=== PATIENT | female | born 1945 | race Caucasian/White ===

== ENCOUNTER → 2017-09-11 | Day surgery (SDC) | payer OTHER, MEDICARE ==
[~2017-09-11] VITALS: Ht 160 cm; Wt 70.3 kg
[~2017-09-11] MED LIST: CITALOPRAM HBR10 MG PO; CO-Q-10 100 MG-1 SGL PO; LEVOTHYROXINE100 MC1 PO; MAG GLYCINATE100 MG PO; PRESERVISION A1 EAC1 PO; PRESERVISION AR1 SGL PO; PROTONIX 40MG T40 MG PO; THERA TEARS15 ML OU; VITAMIN B-121000 MC3 PO; VITAMIN B-125000 MCG PO; VITAMIN D1000 UNIT PO; VITAMIN D31000 UNI1 PO
--- NOTE | 2017-09-11 08:29 | Operative Report ---
Operative/Inv Procedure Report Surgery Date: 09/11/17 Name of Procedure: Cataract extraction lens implantation left eye Pre-Operative Diagnosis: Age-related cataract left eye 20/30 vision 20/70 glare vision Post-Operative Diagnosis: Same Estimated Blood Loss: none Surgeon/Railroad Baggage Porter: Cesario MAXWELL,Juan David Shine Anesthesia: local monitored anesthesi Complications: None Operative/Procedure Note Note: The patient was brought to the operating room standard monitoring equipment was attached the patient was prepped and draped in the usual fashion for intraocular surgery. A lid speculum was placed to retract the lids. The case was begun by making a temporal incision with a 2.4 mm keratome. The eye was stabilized with a Braga ring during this incision. 1 mL of non-preserved lidocaine was introduced into the anterior chamber to provide anesthesia. The anterior chamber was then filled and deepened with viscoelastic. A curvilinear capsulorrhexis was achieved using a 30-gauge needle and is a cystotome and capsulorrhexis was finished using a Utrata forceps. A second or paracentesis incision was made temporally with a 1 mm MVR blade. The lens was then hydrodissected with balanced salt solution and found to be rotatable. The lens was emulsified using phacoemulsification and a modified four-quadrant cracking technique. The residual cortical material was removed using automated irrigation and aspiration and as much of the anterior capsular rim was cleaned as well as possible. The posterior capsule was cleaned first with the automated machine on a low setting and then manually with a Ronaldo squeegee. The capsular bag was deepened with viscoelastic. The lens a Technis 1 23.0 Diopter placed into the bag under direct visualization and rotated so that the haptics were at 12 and 6:00. Viscoelastic was then removed from the eye by flushing it out and then by automated irrigation and aspiration. The eye was pressurized to a normal tone. 1/10 of a cc of cefuroxime solution was introduced into the anterior chamber to provide antibiotic prophylaxis. The wounds were sealed by hydrating the stroma adjacent to them and the eye was left at a proper tone after the wounds were checked and found not to be leaking. The lid speculum was removed from the orbit. Antibiotic and steroid drops were placed on the eye and then the eye was shielded. Monitoring equipment was removed from the patient and the patient was removed from the operative suite to the holding area. The patient tolerated the procedure well and will be seen in the office tomorrow.
== END ==
LOC: STS 00:43
DX: H25.9 Unspecified age-related cataract (principal); E03.9 Hypothyroidism, unspecified; M19.90 Unspecified osteoarthritis, unspecified site
CPT/HCPCS: J2250; V2632

== ENCOUNTER 2018-03-18 11:33 | Observation (INO) | payer OTHER, MEDICARE ==
[~2018-03-18] VITALS: Ht 160 cm; Wt 70.3 kg
[2018-03-18 12:10] LABS: ABSOLUTE BASOPHIL COUNT 0 /CUMM (0.0-0.2); ABSOLUTE EOSINOPHIL COUNT 0 /CUMM (0.0-0.7); ABSOLUTE GRANULOCYTE CT 12.6 /CUMM (1.4-6.5); ABSOLUTE LYMPH COUNT 1.9 /CUMM (1.2-3.4); ABSOLUTE MONOCYTE COUNT 1.3 /CUMM (0.10-0.60); BASOPHIL % 0.2 % (0.0-2.0); EOSINOPHIL % 0.1 % (0-5); GRANULOCYTE % 79.5 % (42.2-75.2); HEMATOCRIT 42.9 % (37-47); MEAN CORPUSCULAR HGB 30.5 PG (27.0-31.0); MEAN CORPUSCULAR HGB CONC 33.4 G/DL (33.0-37.0); MEAN CORPUSCULAR VOLUME 91.1 FL (81.0-99.0); MEAN PLATELET VOLUME 7.6 FL (7.4-10.4); PLATELET COUNT 267 /CUMM (130-400); RBC DISTRIBUTION WIDTH 14.1 % (11.5-14.5); RED BLOOD CELL CT 4.71 /CUMM (4.20-5.40); WHITE BLOOD CELL COUNT 15.9 /CUMM (4.8-10.8)
[2018-03-18 12:23] LABS: PT 12.9 SEC (9.4-12.5); PTT 51 SEC (25-37)
[2018-03-18] MEDS ORDERED: LEVOTHYROXINE50 MCG PO (14:40)
--- NOTE | 2018-03-18 15:19 | ED GI/GU/ABDOMINAL COMPLAINT ---
History of Present Illness General Chief Complaint: Abdominal Pain/Flank Pain Stated Complaint: SENT BY MD TO R/O APPENDICITIS Source: patient Exam Limitations: no limitations Vital Signs & Intake/Output Vital Signs & Intake/Output Vital Signs Date Time Temp Pulse Resp B/P B/P Pulse O2 O2 Flow FiO2 Mean Ox Delivery Rate 03/18 1858 98.3 75 17 102/56 97 Room Air 03/18 1625 76 18 103/59 98 Room Air 03/18 1146 99.1 87 20 123/77 97 Room Air Allergies Coded Allergies: Penicillins (SUBSTANTIAL RASH A YOUNG ADULT 09/08/17) Triage Note: PT SENT IN BY PCP, PT STATES SHE WAS TOLD THAT SHE MIGHT HAVE APPENDICITIS AND HER WBC COUNT HIGH, PER PT "I THINK SHE SAID [id number]" PT STATES THAT SHE HAS HAD ABD PAIN X2DAYS AND PT STATES THAT SHE HAS NOT HAD ANYTHING TO EAT IN 2 DAYS DUE TO NAUSEA. PT STATES THAT SATURDAY MORNING SHE PASSED OUT ON TOILET. Triage Nurses Notes Reviewed? yes ? n Is pt currently ? No Onset: Gradual Duration: day(s): Timing: recent history Quality/Severity: moderate Location: periumbilical HPI: 73yo female with hx of thyroid disease presents to ED complaining of abdominal pain beginning 03/16. Patient states that her abdominal pain began as periumbilical pain and has gradually worsened since onset. Patient went to see her primary care physician this morning and experienced pain when PCP palpated her right lower quadrant. Given this finding patient was sent here for evaluation of appendicitis. Patient reports that last bowel movement was in the early hours of Saturday morning at which time she "passed out". Patient reports associated anorexia and nausea. Patient reports fever >100F recorded at home. Patient denies sick contacts, diarrhea, vomiting or urinary symptoms. (Chica KAM,Alejandrina Fields) Reconcile Medications Citalopram Hydrobromide (Citalopram HBr) 10 MG TABLET 1 TAB PO EOD MENTAL HEALTH (Reported) Levothyroxine Sodium 100 MCG TABLET 1 TAB PO Q48 THYROID (Reported) Levothyroxine Sodium 50 MCG TABLET 1 TAB PO Q48 THYROID (Reported) Oxycodone HCl/Acetaminophen (Percocet 5-325 MG Tablet) 5 MG-325 MG TABLET 1 TAB PO Q4P PRN PAIN (Celia MAXWELL,Akhil Ascencio) Past History Travel History Traveled to [place] past 21 day No Medical History Any Pertinent Medical History? see below for history Gastrointestinal: GERD Endocrine: hypothyroidism Surgical History Surgical History: Psychosocial History What is your primary language Yoruba Tobacco Use: Never used Family History Hx Contributory? No (Alejandrina Chavarria) Review of Systems Review of Systems Constitutional: Reports: see HPI. EENTM: Reports: no symptoms. Respiratory: Reports: no symptoms. Cardiovascular: Reports: no symptoms. GI: Reports: see HPI. Genitourinary: Reports: no symptoms. Musculoskeletal: Reports: no symptoms. Skin: Reports: no symptoms. Neurological/Psychological: Reports: no symptoms. Hematologic/Endocrine: Reports: no symptoms. Immunologic/Allergic: Reports: no symptoms. All Other Systems: Reviewed and Negative (Alejandrina Chavarria) Physical Exam Physical Exam General Appearance: well developed/nourished, no apparent distress, alert, awake Head: atraumatic, normal appearance Eyes: Bilateral: normal appearance. Ears, Nose, Throat, Mouth: hearing grossly normal Neck: normal inspection, supple, full range of motion Respiratory: normal breath sounds, no respiratory distress, lungs clear Cardiovascular: regular rate/rhythm Gastrointestinal: normal bowel sounds, soft, no organomegaly, RLQ and LLQ tenderness with gaurding, no rebound tenderness, -Rosving's sign Back: normal inspection, normal range of motion Extremities: normal range of motion Neurologic/Psych: awake, alert, oriented x 3 Skin: intact, normal color, warm/dry Core Measures ACS in differential dx? No Sepsis Present: No Sepsis Focused Exam Completed? No (Alejandrina Chavarria) Progress Differential Diagnosis: appendicitis, bowel obstruction, colon cancer, cholecystitis, diverticulitis, gastritis, hernia, ischemic bowel, SBO, UTI/pyelo Plan of Care: Orders Procedure Date/time Status OXYGEN 03/19 UNK Complete OXYGEN DAILY CHARGE 03/[address] scan shows appendicitis. Patient has leukocytosis of 15.9. Her EKG is stable. Patient started on IV antibiotics, Flagyl and ceftriaxone given penicillin allergy. Discussed findings with Dr. Miller, plan for appendectomy tonight with overnight observation. The patient was seen and evaluated by Dr. Yang who agrees with this plan. Diagnostic Imaging: Viewed by Me: CT Scan. Discussed w/RAD: CT Scan. Radiology Impression: PATIENT: WON VARMA PRESENT AGE : 73 PATIENT ACCOUNT NO: [id number] : 44 LOCATION: [facility] ORDERING PHYSICIAN: Alejandrina KAM SERVICE DATE: 03/18/18 EXAM TYPE: CAT - CT ABD & PELVIS W/O IV CONTRAS EXAMINATION: CT ABDOMEN AND PELVIS WITHOUT CONTRAST CLINICAL INFORMATION: Right lower quadrant pain. COMPARISON: None TECHNIQUE: Multidetector volumetric imaging was performed from the superior aspect of the liver through the pubic symphysis. Sagittal and coronal reformatted images were obtained on the technologist's workstation. DLP: 322.73 mGy-cm FINDINGS: LUNG BASES: The visualized lung bases are unremarkable. There is a small Bochdalek herniation of mesenteric fat at the posterior right lung base. LIVER, GALLBLADDER, AND BILIARY TREE: The liver is normal in size, shape, and attenuation. No focal hepatic lesion or biliary ductal dilatation is present. The gallbladder is unremarkable with no evidence of radiopaque gallstones, gallbladder wall thickening, or obvious pericholecystic inflammatory changes. PANCREAS: Unremarkable. SPLEEN: Unremarkable. ADRENAL GLANDS: Unremarkable. KIDNEYS AND URETERS: The kidneys are normal in size, shape, and attenuation. No hydronephrosis, hydroureter, or calculi seen. No perinephric stranding. BLADDER: Unremarkable. GASTROINTESTINAL TRACT: The appendix is edematous measuring 1 cm in diameter. There is edema in the surrounding mesentery. This is consistent with an appendicitis. There is no abscess or evidence of perforation. Moderate amount of scattered stool in the colon. The small bowel loops are normal. ABDOMINAL WALL: No significant hernia is appreciated. LYMPH NODES: Normal. VASCULAR: There is scattered vascular calcifications of the distal aorta without aneurysm. PELVIC VISCERA: The uterus is anteverted. There are numerous coarse calcifications within the uterus. There is no adnexal abnormality. There is no fluid in the cul-de-sac. OSSEOUS STRUCTURES: Degenerative spondylosis spine with multilevel disc height narrowing and plate spurring and facet joint arthrosis. IMPRESSION: Appendicitis. DICTATED BY: Alden Lovell MD DATE/TIME DICTATED:03/18/181609 PRISM MEASURER:JEFFERY DATE/TIME TRANSCRIBED:03/18/181609 CONFIDENTIAL, DO NOT COPY WITHOUT APPROPRIATE AUTHORIZATION. <Electronically signed in Other Vendor System> SIGNED BY: Alden Lovell MD 03/18/18 8658 Initial ED EKG: sinus rhythm @85bpm (Alejandrina Chavarria) Departure Departure Disposition: STILL A PATIENT Condition: Stable Referrals: Monserrat MAXWELL,[place] (PCP/Family) Departure Forms: Customer Survey General Discharge Information OR/GI Note Spoke With: Paul MAXWELL,Moise Junior ED Treatment Decision: WON VARMA requires urgent operative management or an emergent procedure that cannot be performed in the Emergency Room setting. Appendectomy Transport To: Surgical [facility] (Alejandrina Chavarria) Departure Clinical Impression Primary Impression: Appendicitis Qualifiers: Appendicitis type: acute appendicitis Prescriptions: Current Visit Scripts Oxycodone HCl/Acetaminophen (Percocet 5-325 MG Tablet) 1 TAB PO Q4P PRN PAIN #10 TAB PA/DECKHAND OYSTER DREDGE Co-Sign Statement Statement: ED Attending supervision documentation- [x] I saw and evaluated the patient. I have also reviewed all the pertinent lab results and diagnostic results. I agree with the findings and the plan of care as documented in the PA's/DECKHAND OYSTER DREDGE's documentation. [] I have reviewed the ED Record and agree with the PA's/DECKHAND OYSTER DREDGE's documentation. [] Additions or exceptions (if any) to the PAs/DECKHAND OYSTER DREDGE's note and plan are summarized below: [] (Celia MAXWELL,Akhil Ascencio)
--- NOTE | 2018-03-18 16:21 | CT SCAN REPORT ---
EXAMINATION: CT ABDOMEN AND PELVIS WITHOUT CONTRAST CLINICAL INFORMATION: Right lower quadrant pain. COMPARISON: None TECHNIQUE: Multidetector volumetric imaging was performed from the superior aspect of the liver through the pubic symphysis. Sagittal and coronal reformatted images were obtained on the technologist's workstation. DLP: 322.73 mGy-cm FINDINGS: LUNG BASES: The visualized lung bases are unremarkable. There is a small Bochdalek herniation of mesenteric fat at the posterior right lung base. LIVER, GALLBLADDER, AND BILIARY TREE: The liver is normal in size, shape, and attenuation. No focal hepatic lesion or biliary ductal dilatation is present. The gallbladder is unremarkable with no evidence of radiopaque gallstones, gallbladder wall thickening, or obvious pericholecystic inflammatory changes. PANCREAS: Unremarkable. SPLEEN: Unremarkable. ADRENAL GLANDS: Unremarkable. KIDNEYS AND URETERS: The kidneys are normal in size, shape, and attenuation. No hydronephrosis, hydroureter, or calculi seen. No perinephric stranding. BLADDER: Unremarkable. GASTROINTESTINAL TRACT: The appendix is edematous measuring 1 cm in diameter. There is edema in the surrounding mesentery. This is consistent with an appendicitis. There is no abscess or evidence of perforation. Moderate amount of scattered stool in the colon. The small bowel loops are normal. ABDOMINAL WALL: No significant hernia is appreciated. LYMPH NODES: Normal. VASCULAR: There is scattered vascular calcifications of the distal aorta without aneurysm. PELVIC VISCERA: The uterus is anteverted. There are numerous coarse calcifications within the uterus. There is no adnexal abnormality. There is no fluid in the cul-de-sac. OSSEOUS STRUCTURES: Degenerative spondylosis spine with multilevel disc height narrowing and plate spurring and facet joint arthrosis. IMPRESSION: Appendicitis.
--- NOTE | 2018-03-18 17:47 | Admission Core Measures ---
Acute Coronary Syndrome (CM) ACS Core Measures Acute Coronary Syndrome Diagnosis No Congestive Heart Failure (NEW) CHF Core Measures Congestive Heart Failure Diagnosis No Cerebrovascular Accident CVA Core Measures CVA/TIA Diagnosis No Venous Thromboembolism VTE Core Dwayne (View Protocol) VTE Risk Factors Age>40 No Mechanical VTE Prophylaxis d/t N/A MechProphylax Ordered No VTE Pharm Prophylaxis d/t NA PharmProphylax ordered Problem List As ranked by this Provider includes Assessment & Plan 1. Acute appendicitis HOME MEDS Home Med List Citalopram Hydrobromide (Citalopram HBr) 10 MG TABLET 1 TAB PO EOD MENTAL HEALTH (Reported) Levothyroxine Sodium 100 MCG TABLET 1 TAB PO Q48 THYROID (Reported) Levothyroxine Sodium 50 MCG TABLET 1 TAB PO Q48 THYROID (Reported)
--- NOTE | 2018-03-18 17:52 | History & Physical Pre-Op ---
Bienvenido Cedillo 03/18/18 7477: General Information and HPI MD Statement: I have seen and personally examined WON CASTANEDA and documented this H&P. The patient is a 73 year old F who presented with a patient stated chief complaint of right lower quadrant abdominal pain []. Source of Information: patient, family Exam Limitations: no limitations History of Present Illness: Ms. Castaneda 73-year-old female with a past medical history of hypothyroidism presents with 1 day history of sudden onset right lower quadrant abdominal pain without nausea or vomiting. She denies any change of bladder or bowel. She denies fever or chills at home she does however complains of anorexia and unable to get comfortable secondary to lower quadrant abdominal pain. CAT scan taken emergency room today demonstrates acute appendicitis. She has no other complaints at this time. Allergies/Medications Allergies: Coded Allergies: Penicillins (SUBSTANTIAL RASH A YOUNG ADULT 09/08/17) Past History Medical History Gastrointestinal: GERD Endocrine: hypothyroidism Surgical History Pertinent Surgical History: Exam & Diagnostic Data Last 24 Hrs of Vital Signs/I&O Vital Signs Date Time Temp Pulse Resp B/P B/P Pulse O2 O2 Flow FiO2 Mean Ox Delivery Rate 03/18 1625 76 18 103/59 98 Room Air 03/18 1146 99.1 87 20 123/77 97 Room Air Intake & Output 03/18 1600 03/18 0800 03/18 0000 Intake Total 0 Output Total Balance 0 Intake, Oral 0 Patient 155 lb Weight Physical Exam General Appearance Alert, Oriented X3, Cooperative Skin No Significant Lesion HEENT PERRLA Cardiovascular Regular Rate, Normal S1, Normal S2 Lungs Clear to Auscultation, Normal Air Movement Abdomen rlq tenderness to palp at mcburney's point, negative rovsing's, no peritonitis, +bs Neurological Strength at 5/5 X4 Ext Extremities No Edema, Normal Pulses Last 24 Hrs of Labs/David: Laboratory Tests 03/18/18 1154: Anion Gap 11, Estimated GFR > 60, BUN/Creatinine Ratio 15.0, Glucose 120 H, Lactic Acid 1.3, Calcium 9.9, Total Bilirubin 1.9 H, AST 30, ALT 21, Alkaline Phosphatase 70, Troponin I < 0.01, Total Protein 7.9, Albumin 4.4, Globulin 3.5, Albumin/Globulin Ratio 1.3, PT 12.9 H, INR 1.18, APTT 51 H, CBC w Diff NO MAN DIFF REQ, RBC 4.71, MCV 91.1, MCH 30.5, MCHC 33.4, RDW 14.1, MPV 7.6, Gran % 79.5 H, Lymphocytes % 11.8 L, Monocytes % 8.4, Eosinophils % 0.1, Basophils % 0.2, Absolute Granulocytes 12.6 H, Absolute Lymphocytes 1.9, Absolute Monocytes 1.3 H, Absolute Eosinophils 0, Absolute Basophils 0 Microbiology 03/18 1734 BLOOD: Blood Culture - RECD 03/18 171 BLOOD: Blood Culture - RECD Diagnostic Data Other Results SERVICE DATE: 03/18/18-150 EXAM TYPE: CAT - CT ABD & PELVIS W/O IV CONTRAS EXAMINATION: CT ABDOMEN AND PELVIS WITHOUT CONTRAST CLINICAL INFORMATION: Right lower quadrant pain. COMPARISON: None TECHNIQUE: Multidetector volumetric imaging was performed from the superior aspect of the liver through the pubic symphysis. Sagittal and coronal reformatted images were obtained on the technologist's workstation. DLP: 322.73 mGy-cm FINDINGS: LUNG BASES: The visualized lung bases are unremarkable. There is a small Bochdalek herniation of mesenteric fat at the posterior right lung base. LIVER, GALLBLADDER, AND BILIARY TREE: The liver is normal in size, shape, and attenuation. No focal hepatic lesion or biliary ductal dilatation is present. The gallbladder is unremarkable with no evidence of radiopaque gallstones, gallbladder wall thickening, or obvious pericholecystic inflammatory changes. PANCREAS: Unremarkable. SPLEEN: Unremarkable. ADRENAL GLANDS: Unremarkable. KIDNEYS AND URETERS: The kidneys are normal in size, shape, and attenuation. No hydronephrosis, hydroureter, or calculi seen. No perinephric stranding. BLADDER: Unremarkable. GASTROINTESTINAL TRACT: The appendix is edematous measuring 1 cm in diameter. There is edema in the surrounding mesentery. This is consistent with an appendicitis. There is no abscess or evidence of perforation. Moderate amount of scattered stool in the colon. The small bowel loops are normal. ABDOMINAL WALL: No significant hernia is appreciated. LYMPH NODES: Normal. VASCULAR: There is scattered vascular calcifications of the distal aorta without aneurysm. PELVIC VISCERA: The uterus is anteverted. There are numerous coarse calcifications within the uterus. There is no adnexal abnormality. There is no fluid in the cul-de-sac. OSSEOUS STRUCTURES: Degenerative spondylosis spine with multilevel disc height narrowing and plate spurring and facet joint arthrosis. IMPRESSION: Appendicitis. DICTATED BY: Alden Lovell MD DATE/TIME DICTATED:03/18/181609 CEMENT CONVEYOR OPERATOR:JEFFERY DATE/TIME TRANSCRIBED:03/18/181609 Assessment/Plan Assessment/Plan: Ms. Castaneda is a 73-year-old female who presents with 1 day history of worsening right lower quadrant abdominal pain. CAT scan taken this afternoon in the emergency room demonstrates acute appendicitis. There is also a leukocytosis present. Based on radiographic findings and clinical examination it was determined by Dr. Miller that this patient will require laparoscopic appendectomy this evening. Plan N.p.o. now, IV fluids IV antibiotics 2 OR this evening for laparoscopic appendectomy The patient and are in agreement with this plan. As Ranked By This Provider Problem List: 1. Acute appendicitis Moise Miller MD 03/18/18 2991: General Information and HPI Allergies/Medications Home Med list Citalopram Hydrobromide (Citalopram HBr) 10 MG TABLET 1 TAB PO EOD MENTAL HEALTH (Reported) Levothyroxine Sodium 100 MCG TABLET 1 TAB PO Q48 THYROID (Reported) Levothyroxine Sodium 50 MCG TABLET 1 TAB PO Q48 THYROID (Reported) Attending MD Review Statement Attending Statement Attending Statement: examined this patient, discuss w/resident/PA/SNOWBLOWER MECHANIC, reviewed images Attending Assessment/Plan: As per PA note. This is a relatively healthy 73-year-old woman who presents with progressive abdominal pain over the past 24 hours. It began as periumbilical pain and has now progressed to the right lower quadrant. She was seen by her primary care physician referred her to the emergency room. Patient complains of anorexia and low-grade fevers. No vomiting. Past medical history significant for anxiety and hypothyroidism. Past surgical history repair of the shoulder, right and . Medications are levothyroxine and citalopram allergies to penicillin. Social history no smoking rare alcohol physical examination general she looks well her stated age in no distress HEENT anicteric PERRLA EOMI neck supple no adenopathy no thyromegaly lungs clear to auscultation bilaterally heart is regular no murmurs abdomen is soft tender right lower quadrant with involuntary guarding. Negative Rovsing sign. White blood cell count is 16,000 electro lites are within normal limits CT scan of the abdomen pelvis images were personally reviewed. Findings show markedly distended and inflamed appendix in the right lower quadrant. There is minimal free fluid no free air Impression is that of acute appendicitis recommendations are for broad-spectrum antibiotics and prompt laparoscopic appendectomy. Patient is informed the risk of the operation including bleeding infection and agrees to proceed.
--- NOTE | 2018-03-18 18:10 | RADIOLOGY REPORT ---
EXAMINATION: XR PORTABLE CHEST CLINICAL INFORMATION: Preop COMPARISON: None TECHNIQUE: Portable frontal view of the chest was obtained. 5:42 PM FINDINGS: No significant abnormality is noted involving the heart, lungs, mediastinum, bony thorax or soft tissues. IMPRESSION: No acute abnormality of the chest.
--- NOTE | 2018-03-18 20:08 | Operative Report ---
Operative/Inv Procedure Report Surgery Date: 03/18/18 Name of Procedure: Laparoscopic appendectomy Pre-Operative Diagnosis: Acute appendicitis Post-Operative Diagnosis: Same Estimated Blood Loss: less than 50ml Surgeon/Inside Parts Sales: Moise Miller MD/Truman KAM Anesthesia: general endotracheal tube Specimens: Appendix Operative Indication: This is a relatively healthy 73-year-old woman with progressive abdominal pain and examination consistent with acute appendicitis. CT scan confirms the diagnosis Operative/Procedure Note Note: After consent patient is brought to the operating room and laid supine. General anesthesia was obtained his abdomen was prepped and draped. Skin above the umbilicus was after local anesthesia a curvilinear incision made sharply. We dissected through subcutaneous tissues tissues bluntly and identified the fascia. It was grasped with Danish's and a fasciotomy created sharply. The peritoneum was entered sharply and a blunt Pelayo port was placed. Pneumoperitoneum was achieved. 2, 5 mm ports were placed in the suprapubic region and left lower quadrant, after local anesthesia was instilled and under direct vision the camera. Patient placed in Trendelenburg and rotated towards the left. The abdomen was explored. There was no significant intraperitoneal fluid. The appendix was hiding behind the terminal ileum. Terminal ileum was peeled off of it and the appendix grasped along its mesentery. The retroperitoneal attachments to it were taken down with cautery were able to mobilize it into the operative field. We did cauterize it medially away from the small bowel mesentery as well. The base was then grasped and a window in the mesentery develop with a [place] dissector. The base and mesentery were then sequentially divided with Endo VICKY keane loads. Appendix was placed in an Endo Catch bag and cinched up. The right lower quadrant and pelvis were then irrigated with normal saline. Hemostasis was achieved with electrocautery. Ports then removed and appendix delivered and passed off the field. The fascia was closed 0 Vicryl suture. Skin incisions closed with 4-0 Vicryl. Steri- Strips and sterile dressing applied. Sponge and needle counts are correct CC: Monserrat MAXWELL,[place]
[2018-03-18 21:00] VITALS: BP 104/64
[2018-03-18 23:00] VITALS: BP 98/62
--- NOTE | 2018-03-18 23:00 | PN- General Surgery ---
Subjective Subjective: No complaints postoperatively. No pain. No nausea no vomiting, she feels well, she is recovering from anesthesia without complications Objective Vital Signs and I&Os Vital Signs Date Time Temp Pulse Resp B/P B/P Pulse O2 O2 Flow FiO2 Mean Ox Delivery Rate 03/18 2100 98.4 70 16 104/64 96 Nasal 2.0L Cannula 03/18 1858 98.3 75 17 102/56 97 Room Air 03/18 1625 76 18 103/59 98 Room Air 03/18 1146 99.1 87 20 123/77 97 Room Air Intake & Output 03/18 1600 03/18 0800 03/18 0000 03/17 0803/17 0000 Intake Total 0 Output Total Balance 0 Intake, Oral 0 Patient 155 lb Weight Physical Exam: Well-developed well-nourished no apparent distress. HEENT: Atraumatic, extraocular motion intact Neck: Supple, no lymphadenopathy Respiratory: No respiratory distress Abdomen: Minimal tenderness right lower quadrant, dressing sites clean dry and intact Extremities: No edema, no calf pain Neuro: Alert and oriented x3 Psych: Mood affect normal, normal memory normal judgment. Skin: Warm and dry, no rash on exposed skin Assessment/Plan Assessment/Plan Postop day #0 status post laparoscopic appendectomy Pain medication as needed. Ambulate/out of bed. IV fluids until tolerating adequate p.o. Clears for now, regular diet in the morning As needed antiemetics Heparin subcu and alps for DVT prophylaxis GI prophylaxis Patient placed in 23-hour observation after acute appendicitis and appendectomy, advance to regular diet in the morning and discharge if surgically stable Core Measures Venous Thromboembolism VTE Risk Factors Age>40 No Mechanical VTE Prophylaxis d/t N/A MechProphylax Ordered No VTE Pharm Prophylaxis d/t NA PharmProphylax ordered
[2018-03-19 01:18] VITALS: BP 97/61
[2018-03-19 03:00] VITALS: BP 98/62
[2018-03-19 06:39] VITALS: BP 96/50
--- NOTE | 2018-03-19 07:06 | PN- Student ---
Emily Arreaga 03/19/18 0651: Subjective Subjective: 73 yo female POD 1 s/p laporascopic appendectomy seen at bedside this am. Endorses mild discomfort around incision sites but says pain is well controlled. Is ambulating well independently. Pt is spontaneously voiding clear, yellow urine, passing flatus, but no BM yet. Has not yet had anything to eat, but says she now has an appetite for breakfast and has been tolerating PO fluids. IS is bedside and pt states she had no idea about it, demonstrated and observed proper use. Denies constipation, nausea, vomitting, fever, chills, sob, or chills. Objective Objective: Vital Signs Date Time Temp Pulse Resp B/P B/P Pulse O2 O2 Flow FiO2 Mean Ox Delivery Rate 03/19 0639 97.9 62 18 96/50 96 Room Air 03/19 0300 98.1 60 16 98/62 98 Nasal 2.0L Cannula 03/19 0118 98.3 70 18 97/61 96 Nasal 2.0L Cannula 03/19 0000 96 Nasal 2.0L Cannula 03/18 2300 98.2 70 18 98/62 96 Nasal 2.0L Cannula 03/18 2100 98.4 70 16 104/64 96 Nasal 2.0L Cannula 03/18 1858 98.3 75 17 102/56 97 Room Air 03/18 1625 76 18 103/59 98 Room Air 03/18 1146 99.1 87 20 123/77 97 Room Air Intake & Output 03/19 0800 03/19 0000 03/18 1600 Intake Total 840 325 0 Output Total 800 Balance 40 325 0 Intake, IV 600 225 Intake, Oral 240 100 0 Output, Urine 800 Patient 155 lb 155 lb Weight Gen: wdwn, nad, aox4 CV: RRR, no m/r/g Respiratory: good air movement, vesicular b/l, no w/r/r Abdomen: +BS, very mild distension, no tenderness to palpation, no rebound or guarding, dressing sites clean dry and intact Extremities: dp and radial pulses +2 b/l, no pitting edema, no calf pain Results Results: Laboratory Tests 03/18 03/18 1448 1154 Chemistry Sodium (137 - 145 mmol/L) 135 L Potassium (3.5 - 5.1 mmol/L) 4.5 Chloride (98 - 107 mmol/L) 97 L Carbon Dioxide (22 - 30 mmol/L) 27 Anion Gap (5 - 16) 11 BUN (7 - 17 mg/dL) 12 Creatinine (0.5 - 1.0 mg/dL) 0.8 Estimated GFR (>60 ml/min) > 60 BUN/Creatinine Ratio (7 - 25 %) 15.0 Glucose (65 - 99 mg/dL) 120 H Lactic Acid (0.7 - 2.1 mmol/L) Cancelled 1.3 Calcium (8.4 - 10.2 mg/dL) 9.9 Total Bilirubin (0.2 - 1.3 mg/dL) 1.9 H AST (14 - 36 U/L) 30 ALT (9 - 52 U/L) 21 Alkaline Phosphatase (<127 U/L) 70 Troponin I (< 0.11 ng/ml) < 0.01 Total Protein (6.3 - 8.2 g/dL) 7.9 Albumin (3.5 - 5.0 g/dL) 4.4 Globulin (1.9 - 4.2 gm/dL) 3.5 Albumin/Globulin Ratio (1.1 - 2.2 %) 1.3 Coagulation PT (9.4 - 12.5 SEC) 12.9 H INR (0.90 - 1.19) 1.18 APTT (25 - 37 SEC) 51 H Hematology CBC w Diff NO MAN DIFF REQ WBC (4.8 - 10.8 /CUMM) 15.9 H RBC (4.20 - 5.40 /CUMM) 4.71 Hgb (12.0 - 16.0 G/DL) 14.3 Hct (37 - 47 %) 42.9 MCV (81.0 - 99.0 FL) 91.1 MCH (27.0 - 31.0 PG) 30.5 MCHC (33.0 - 37.0 G/DL) 33.4 RDW (11.5 - 14.5 %) 14.1 Plt Count (130 - 400 /CUMM) 267 MPV (7.4 - 10.4 FL) 7.6 Gran % (42.2 - 75.2 %) 79.5 H Lymphocytes % (20.5 - 51.1 %) 11.8 L Monocytes % (1.7 - 9.3 %) 8.4 Eosinophils % (0 - 5 %) 0.1 Basophils % (0.0 - 2.0 %) 0.2 Absolute Granulocytes (1.4 - 6.5 /CUMM) 12.6 H Absolute Lymphocytes (1.2 - 3.4 /CUMM) 1.9 Absolute Monocytes (0.10 - 0.60 /CUMM) 1.3 H Absolute Eosinophils (0.0 - 0.7 /CUMM) 0 Absolute Basophils (0.0 - 0.2 /CUMM) 0 Laboratory Tests 03/18/18 1448: Lactic Acid Cancelled 03/18/18 1154: Anion Gap 11, Estimated GFR > 60, BUN/Creatinine Ratio 15.0, Glucose 120 H, Lactic Acid 1.3, Calcium 9.9, Total Bilirubin 1.9 H, AST 30, ALT 21, Alkaline Phosphatase 70, Troponin I < 0.01, Total Protein 7.9, Albumin 4.4, Globulin 3.5, Albumin/Globulin Ratio 1.3, PT 12.9 H, INR 1.18, APTT 51 H, CBC w Diff NO MAN DIFF REQ, RBC 4.71, MCV 91.1, MCH 30.5, MCHC 33.4, RDW 14.1, MPV 7.6, Gran % 79.5 H, Lymphocytes % 11.8 L, Monocytes % 8.4, Eosinophils % 0.1, Basophils % 0.2, Absolute Granulocytes 12.6 H, Absolute Lymphocytes 1.9, Absolute Monocytes 1.3 H, Absolute Eosinophils 0, Absolute Basophils 0 Microbiology Date/Time Procedure - Status Source Growth 03/18 1734 Blood Culture - RECD BLOOD 03/18 1714 Blood Culture - RECD BLOOD Assessment/Plan Assessment: 73 yo female w/ hx of hypothyroidism POD 1 s/p laparoscopic appendectomy tolerated surgery well w/o complaints Plan: Pain medication prn Ambulate/OOB/IS Regular diet this AM Blood cx and labs pending Heparin SC and alps for DVT prophylaxis GI prophylaxis d/c to home
--- NOTE | 2018-03-19 10:11 | PN- General Surgery ---
Subjective Subjective: Minimal pain, no nausea, no vomiting, no fever. Patient states she was" starving" this morning and ate a full breakfast without difficulty. Objective Vital Signs and I&Os Vital Signs Date Time Temp Pulse Resp B/P B/P Pulse O2 O2 Flow FiO2 Mean Ox Delivery Rate 03/19 0639 97.9 62 18 96/50 96 Room Air 03/19 0300 98.1 60 16 98/62 98 Nasal 2.0L Cannula 03/19 0118 98.3 70 18 97/61 96 Nasal 2.0L Cannula 03/19 0000 96 Nasal 2.0L Cannula 03/18 2300 98.2 70 18 98/62 96 Nasal 2.0L Cannula 03/18 2100 98.4 70 16 104/64 96 Nasal 2.0L Cannula 03/18 1858 98.3 75 17 102/56 97 Room Air 03/18 1625 76 18 103/59 98 Room Air 03/18 1146 99.1 87 20 123/77 97 Room Air Intake & Output 03/19 1600 03/19 0800 03/19 0000 03/18 1600 03/18 0800 03/18 0000 Intake Total 840 325 0 Output Total 1200 Balance -360 325 0 Intake, IV 600 225 Intake, Oral 240 100 0 Output, Urine 1200 Patient 155 lb 155 lb Weight Physical Exam: Well-developed well-nourished no apparent distress. HEENT: Atraumatic, extraocular motion intact Neck: Supple, no lymphadenopathy Respiratory: No respiratory distress Abdomen: Minimal tenderness right lower quadrant as expected. Port sites clean dry and intact. No distention. Extremities: No edema, no calf pain Neuro: Alert and oriented x3 Psych: Mood affect normal, normal memory normal judgment. Skin: Warm and dry, no rash on exposed skin Assessment/Plan Assessment/Plan Postop day #1 status post laparoscopic appendectomy Placed in observation, stable for discharge home today Regular diet Postoperative instructions discussed Core Measures Venous Thromboembolism VTE Risk Factors Age>40 No Mechanical VTE Prophylaxis d/t N/A MechProphylax Ordered No VTE Pharm Prophylaxis d/t NA PharmProphylax ordered
[2018-03-19] MEDS ORDERED: PERCOCET 5-3251 EACH PO (10:12)
--- NOTE | 2018-03-19 10:15 | Patient Discharge Instructions ---
Discharge Instructions General Discharge Information You were seen/treated for: Acute appendicitis You had these procedures: Laparoscopic appendectomy Watch for these problems: Worsening abdominal pain, nausea, vomiting, fever, flulike illness, poor appetite, redness or drainage from the incision sites Do not soak the wound: Yes No bath, but you may shower: Yes Other wound care: Change Band-Aids after 3 days or when wet, the Steri-Strips will fall off on their own Special Instructions: Take pain medication as needed Percocet for severe pain. You may take Tylenol or Motrin for mild to moderate pain Diet Continue normal diet: Yes Activity Full Activity/No Limits: No Activity Self Limited: Yes Pounds, do NOT lift more than: 10 Acute Coronary Syndrome Inclusion Criteria At DC or during hospital stay patient has or had the following: ACS DIAGNOSIS No Discharge Core Measures Meds if any: Prescribed or Continued at Discharge Meds if any: NOT Prescribed or Continued at Discharge Congestive Heart Failure Inclusion Criteria At DC or during hospital stay patient has or had the following: CHF DIAGNOSIS No Discharge Core Measures Meds if any: Prescribed or Continued at Discharge Meds if any: NOT Prescribed or Continued at Discharge Cerebrovascular accident Inclusion Criteria At DC or during hospital stay patient has or had the following: CVA/TIA Diagnosis No Discharge Core Measures Meds if any: Prescribed or Continued at Discharge Meds if any: NOT Prescribed or Continued at Discharge Venous thromboembolism Inclusion Criteria VTE Diagnosis No VTE Type NONE VTE Confirmed by (Test) NONE Discharge Core Measures - Per Current guidelines, there needs to be overlap - treatment for the first 5 days of Warfarin therapy. - If discharged on Warfarin prior to 5 days of - overlap therapy, the patient will need to be - assessed for post discharge needs including - *Post discharge parental anticoagulation - *Warfarin and/or parental anticoagulation education - *Follow up date to check INR post discharge At least 5 days overlap therapy as Inpatient No Meds if any: Prescribed or Continued at Discharge Note: Overlap Therapy is Warfarin and Anticoagulant Meds if any: NOT Prescribed or Continued at Discharge
--- NOTE | 2018-03-20 14:57 | Surg Short-stay <48hrs Dis Sum ---
Visit Information Visit Dates Admission Date: 03/18/18 Discharge Date: 03/19/18 Surgical Short Stay DC Summary Admission Diagnosis: appendicitis Final Diagnosis: same Procedure(s): laparoscopic appendectomy Summary/Significant Findings: none Condition at Discharge: good Discharge Disposition: home or self care Discharge instructions provided to patient/family: Yes Post discharge follow-up plan: 2 weeks Copies to: Monserrat MAXWELL,[place]
== END 2018-03-19 11:00 ==
LOC: ERH 11:33 → ER-OR 11:39 → PACUH 20:16 → 2NB 20:16 → ENRESERV 20:34 → ENTRNSPT 20:55 → EDTRNSPTSTS 20:56 → 2NB 21:08 → CMPTRNSPT 21:18 → 2NB 03-19 11:00
PROVIDERS: Physician Assistant
DX: K35.80 Unspecified acute appendicitis (principal); E03.9 Hypothyroidism, unspecified; K21.9 Gastro-esophageal reflux disease without esophagitis; Z23 Encounter for immunization
CPT/HCPCS: 1328; 1530; 1748; 6040; 71045; 74176; 86902; 86920; 86922; 87040; 93005; 93010; 96372; G0008; G0378; J0131; J0696; J1644; J2250; J2550; J3490; J7042; Q2036